=== PATIENT | female | born 1990 | race Caucasian/White ===

== ENCOUNTER 2019-01-31 12:39 | Inpatient (IN) | payer BC ==
[2019-01-31] MEDS ORDERED: LACTATED RINGER'S 1,000 ML IV (16:33)
[2019-01-31 16:48] LABS: ADD MAN DIFF? NO
[2019-01-31 16:54] LABS: WHITE BLOOD COUNT 8.1 10^3/ul (4.8-10.8)
[2019-01-31 16:54] LABS: BASOPHILS % 0.2 % (0.0-2.0); EOSINOPHILS % 0.1 % (0.0-7.0); HEMATOCRIT 36.9 % (37.0-47.0); HEMOGLOBIN 11.8 g/dl (12.0-16.0); LYMPHOCYTES # 2.2 10^3/ul (0.8-2.9); LYMPHOCYTES % 27.1 % (15.0-51.0); MEAN CORPUSCULAR HEMOGLOBIN 26.2 pg (29.0-33.0); MEAN CORPUSCULAR VOLUME 81.8 fl (82.0-101.0); MEAN PLATELET VOLUME 11.7 fl (7.4-10.4); MONOCYTE # 0.4 10^3/ul (0.3-0.9); MONOCYTES % 4.8 % (0.0-11.0); NEUTROPHIL # 5.5 10^3/ul (1.6-7.5); NEUTROPHILS % 67.6 % (39.0-77.0); PLATELET COUNT 199 10^3/UL (140-415); RED BLOOD COUNT 4.51 10^6/ul (4.20-5.40); RED CELL DISTRIBUTION WIDTH 13.9 % (11.5-14.5)
[2019-01-31] MEDS ORDERED: LIDOCAINE 1% (MPF) 30 ML INJ INJ (17:00)
[2019-01-31] MEDS ORDERED: MISOPROSTOL 200 MCG TAB PR (17:00)
[2019-01-31] MEDS ORDERED: BUTORPHANOL 2 MG INJ IV (17:00)
[2019-01-31] MEDS ORDERED: METHYLERGONOVINE 0.2 MG INJ IM (17:00)
[2019-01-31] MEDS ORDERED: IBUPROFEN 600 MG TAB PO (17:00)
[2019-01-31] MEDS ORDERED: CARBOPROST 250 MCG INJ IM (17:00)
[2019-01-31] MEDS ORDERED: OXYTOCIN 30 UNITS/LR 500 ML IV (17:00)
[2019-01-31] MEDS: LACTATED RINGER'S 1,000 ML IV ×2 (17:08→22:15)
[2019-01-31 17:13] LABS: INR 0.93; PARTIAL THROMBOPLASTIN TIME 27.3 Sec (23.0-35.0); PROTIME 12.6 Sec (11.9-14.9)
[2019-01-31 17:46] LABS: HEPATITIS B SURFACE ANTIGEN NEGATIVE (NEGATIVE)
[2019-01-31] MEDS ORDERED: MINERAL OIL LIGHT 10 ML VIAL TOP (22:30)
[2019-02-01] MEDS: OXYTOCIN 30 UNITS/LR 500 ML IV ×4 (00:28→11:02)
[2019-02-01] MEDS ORDERED: MISOPROSTOL 200 MCG TAB PR (06:00)
[2019-02-01] MEDS ORDERED: CARBOPROST 250 MCG INJ IM (06:00)
[2019-02-01] MEDS ORDERED: ONDANSETRON 4 MG INJ IV (06:00)
[2019-02-01] MEDS ORDERED: OXYTOCIN 30 UNITS/LR 500 ML IV (06:00)
[2019-02-01] MEDS ORDERED: METHYLERGONOVINE 0.2 MG INJ IM (06:00)
[2019-02-01] MEDS ORDERED: DIPHENHYDRAMINE 25 MG CAP PO (06:00)
[2019-02-01] MEDS ORDERED: OXYCODONE/ASPIRIN (4.88/325) TAB PO (06:00)
[2019-02-01] MEDS ORDERED: NACL 0.9% 3 ML SYG IV (06:00)
[2019-02-01] MEDS: IBUPROFEN 600 MG TAB PO ×4 (07:58→23:35)
[2019-02-01] MEDS: SENNA/DOCUSATE NA (8.6MG/50MG) TAB PO ×2 (11:00→21:12)
[2019-02-01] MEDS: BENZOCAINE 20% 56 ML SPRAY TOP (11:00)
[2019-02-01] MEDS: LANOLIN HPA 1 PKT TOP (11:00)
[2019-02-01] MEDS: WITCH HAZEL/GLYCERIN PAD PR (11:00)
[2019-02-01 15:19] LABS: RAPID PLASMA REAGIN NONREACTIVE (NR)
[2019-02-01] MEDS: OXYCODONE/ASPIRIN (4.88/325) TAB PO (16:53)
[2019-02-02] MEDS: IBUPROFEN 600 MG TAB PO ×2 (05:29→11:45)
[2019-02-02 07:22] LABS: ADD MAN DIFF? NO
[2019-02-02 07:29] LABS: BASOPHILS % 0.3 % (0.0-2.0); EOSINOPHILS # 0.1 10^3/ul (0.0-0.5); EOSINOPHILS % 0.6 % (0.0-7.0); HEMATOCRIT 31.6 % (37.0-47.0); HEMOGLOBIN 10.3 g/dl (12.0-16.0); LYMPHOCYTES # 2.6 10^3/ul (0.8-2.9); LYMPHOCYTES % 27.5 % (15.0-51.0); MEAN CORPUSCULAR HEMOGLOBIN 26.9 pg (29.0-33.0); MEAN CORPUSCULAR HGB CONC 32.6 g/dl (32.0-37.0); MEAN CORPUSCULAR VOLUME 82.5 fl (82.0-101.0); MEAN PLATELET VOLUME 11.4 fl (7.4-10.4); MONOCYTE # 0.6 10^3/ul (0.3-0.9); NEUTROPHIL # 6.2 10^3/ul (1.6-7.5); NEUTROPHILS % 65.3 % (39.0-77.0); PLATELET COUNT 200 10^3/UL (140-415); RED BLOOD COUNT 3.83 10^6/ul (4.20-5.40); RED CELL DISTRIBUTION WIDTH 13.9 % (11.5-14.5)
[2019-02-02 07:29] LABS: WHITE BLOOD COUNT 9.5 10^3/ul (4.8-10.8)
[2019-02-02] MEDS: SENNA/DOCUSATE NA (8.6MG/50MG) TAB PO (08:54)
== END 2019-02-02 15:20 | disposition home or self-care (01) | DRG 807 ==
LOC: L-D 12:39 → PP1 02-01 08:45 → L-D 14:39
PROVIDERS: Obstetrics & Gynecology
PROC: 10E0XZZ Delivery of Products of Conception, External Approach (ICD-10-PCS; principal; 2019-01-31)
PROC: 0W8NXZZ Division of Female Perineum, External Approach (ICD-10-PCS; 2019-01-31)
DX: O80 Encounter for full-term uncomplicated delivery (principal); Z37.0 Single live birth; Z3A.39 39 weeks gestation of pregnancy
CPT/HCPCS: 76815; 85025; 85610; 85730; 86592; 86850; 86900; 86901; 87340; 99464